=== PATIENT | male | born 1945 | race Hispanic/Latino ===

== ENCOUNTER 2017-05-13 13:58 | Emergency (ER) | payer MEDICARE ==
[~2017-05-13] VITALS: Ht 160 cm; Wt 75.0 kg
[~2017-05-13 13:58] MED LIST: CELEXA20 M1 PO; CIPROFLOXACN500 MG PO; FLEXERIL PO; HELIDAC PO; KEFLEX500 M1 PO; NAPROSYN500 MG PO; PRILOSEC2.5 MG PO; ULTRAM50 M1 PO; UNKNOWN BP MED; ZESTRIL10 M1 PO; [UNRECOGNIZED DRUG - REMARK]
[2017-05-13 14:45] LABS: HEMATOCRIT 47.2 % (39.0-50.0); HEMOGLOBIN 16.4 g/dl (14.0-18.0); IMMATURE GRANULOCYTES 0.2 % (0.0-1.0); MEAN CELL VOLUME 91.7 fL CALC (80.0-100.0); MEAN CORPUSCULAR HGB 31.8 pG CALC (26.0-32.0); MEAN CORPUSCULAR HGB CONC 34.7 g/L CALC (32.0-36.0); NEUT# 5.44 thou/uL (1.82-7.42); RED BLOOD COUNT 5.15 mill/uL (4.70-6.10); RED CELL DISTRI WIDTH 12.5 % (11.5-15.5)
[2017-05-13 14:58] LABS: ALBUMIN 4.8 g/dL (3.2-5.0); BILIRUBIN, TOTAL 0.7 mg/dL (0.0-1.4); CALCIUM 9.7 mg/dL (8.4-10.2); CREATININE 1.8 mg/dL (0.7-1.3); MAGNESIUM 2.2 mg/dL (1.6-2.3); POTASSIUM 4.7 mmol/l (3.5-5.1); TOTAL PROTEIN 8.3 g/dL (6.3-8.2)
[2017-05-13 16:57] LABS: URINE BILIRUBIN - DIPSTICK NEGATIVE (NEGATIVE); URINE BLOOD DIPSTICK TRACE-INTACT (NEGATIVE); URINE CLARITY CLEAR; URINE COLOR YELLOW; URINE GLUCOSE - DIPSTICK NEGATIVE (NEGATIVE); URINE KETONE NEGATIVE (NEGATIVE); URINE NITRITE - DIPSTICK NEGATIVE (Negative); URINE PH 5.5 (4.5-8.0); URINE PROTEIN - DIPSTICK NEGATIVE (NEG-TRACE); URINE UROBILINOGEN - DIPSTICK 0.2 E.U./dL (0.2)
[2017-05-13] MEDS ORDERED: ZESTRIL10 M1 PO (18:08)
[2017-05-13 18:16] VITALS: BP 155/65
[2017-05-14 06:59] LABS: URINE LEUK ESTERASE NEGATIVE (NEGATIVE)
== END 2017-05-13 18:22 | disposition left against medical advice (07) ==
LOC: ED 13:58 → ED-I 17:14 → ED 17:48 → MS2 17:49 → ED 17:49
PROVIDERS: Emergency Medicine
DX: N17.9 Acute kidney failure, unspecified (principal); Z91.19 Patient's noncompliance with other medical treatment and regimen; R25.2 Cramp and spasm; I10 Essential (primary) hypertension; X30.XXXA Exposure to excessive natural heat, initial encounter; Y93.89 Activity, other specified; Y92.007 Garden or yard of unspecified non-institutional (private) residence as the place of occurrence of the external cause

== ENCOUNTER 2017-06-26 17:46 | Observation (INO) | payer MEDICARE ==
[~2017-06-26] VITALS: Ht 160 cm; Wt 49.5 kg
[2017-06-26 18:59] LABS: HEMATOCRIT 45.7 % (39.0-50.0); HEMOGLOBIN 16.3 g/dl (14.0-18.0); IMMATURE GRANULOCYTES 0.3 % (0.0-1.0); MEAN CELL VOLUME 91.2 fL CALC (80.0-100.0); MEAN CORPUSCULAR HGB 32.5 pG CALC (26.0-32.0); MEAN CORPUSCULAR HGB CONC 35.7 g/L CALC (32.0-36.0); NEUT# 5.74 thou/uL (1.82-7.42); RED BLOOD COUNT 5.01 mill/uL (4.70-6.10); RED CELL DISTRI WIDTH 12.4 % (11.5-15.5)
[2017-06-26 19:00] VITALS: BP 141/57
[2017-06-26 19:08] LABS: ALBUMIN 5.1 g/dL (3.2-5.0); CALCIUM 10.1 mg/dL (8.4-10.2); CREATININE 2.4 mg/dL (0.7-1.3); POTASSIUM 4.1 mmol/l (3.5-5.1); TOTAL PROTEIN 8.9 g/dL (6.3-8.2)
[2017-06-26 19:38] LABS: URINE BILIRUBIN - DIPSTICK NEGATIVE (NEGATIVE); URINE BLOOD DIPSTICK NEGATIVE (NEGATIVE); URINE CLARITY CLEAR; URINE COLOR YELLOW; URINE GLUCOSE - DIPSTICK NEGATIVE (NEGATIVE); URINE KETONE NEGATIVE (NEGATIVE); URINE LEUK ESTERASE NEGATIVE (NEGATIVE); URINE NITRITE - DIPSTICK NEGATIVE (Negative); URINE PH 5.5 (4.5-8.0); URINE PROTEIN - DIPSTICK TRACE mg/dL (NEG-TRACE); URINE SPECIFIC GRAVITY >=1.030; URINE UROBILINOGEN - DIPSTICK 0.2 E.U./dL (0.2)
[2017-06-27 00:35] VITALS: BP 110/55
[2017-06-27 03:37] VITALS: BP 95/48
[2017-06-27 04:46] VITALS: BP 110/56
[2017-06-27 06:33] LABS: HEMATOCRIT 40.7 % (39.0-50.0); HEMOGLOBIN 13.9 g/dl (14.0-18.0); IMMATURE GRANULOCYTES 0.2 % (0.0-1.0); MEAN CELL VOLUME 94.7 fL CALC (80.0-100.0); MEAN CORPUSCULAR HGB 32.3 pG CALC (26.0-32.0); MEAN CORPUSCULAR HGB CONC 34.2 g/L CALC (32.0-36.0); NEUT# 2.73 thou/uL (1.82-7.42); RED BLOOD COUNT 4.3 mill/uL (4.70-6.10); RED CELL DISTRI WIDTH 12.7 % (11.5-15.5)
[2017-06-27 06:41] LABS: ANION GAP 13 (6-22 (CALC)); BUN 21 mg/dL (8-23); BUN/CREATININE RATIO 18 (12-20 (CALC)); CALCIUM 8.2 mg/dL (8.4-10.2); CARBON DIOXIDE 23 mmol/l (22-30); CHLORIDE 109 mmol/l (95-108); CREATININE 1.2 mg/dL (0.7-1.3); GFR 59 ML/MIN (>=60 (CALC)); GFR FOR AFR.AMER. > 60 ML/MIN (>=60 (CALC)); GLUCOSE 94 mg/dL (82-115); POTASSIUM 3.7 mmol/l (3.5-5.1); SODIUM 141 mmol/l (137-146)
[2017-06-27 09:46] VITALS: BP 115/62
== END 2017-06-27 15:20 | disposition home or self-care (01) ==
LOC: ED 17:46 → ED-I 19:20 → ED 19:47 → MS2 19:48
PROVIDERS: Emergency Medicine; ADMIT Internal Medicine; ATTEND Internal Medicine
DX: N17.9 Acute kidney failure, unspecified (principal); E86.0 Dehydration; I10 Essential (primary) hypertension; X30.XXXA Exposure to excessive natural heat, initial encounter; T46.4X5A Adverse effect of angiotensin-converting-enzyme inhibitors, initial encounter

== ENCOUNTER 2018-01-01 19:00 | Emergency (ER) | payer MEDICARE ==
[~2018-01-01] VITALS: Ht 160 cm; Wt 69.2 kg
[2018-01-01 21:24] LABS: URINE BILIRUBIN - DIPSTICK NEGATIVE (NEGATIVE); URINE BLOOD DIPSTICK TRACE-INTACT (NEGATIVE); URINE COLOR YELLOW; URINE GLUCOSE - DIPSTICK NEGATIVE (NEGATIVE); URINE KETONE NEGATIVE (NEGATIVE); URINE LEUK ESTERASE NEGATIVE (NEGATIVE); URINE NITRITE - DIPSTICK NEGATIVE (Negative); URINE PH 5.5 (4.5-8.0); URINE PROTEIN - DIPSTICK NEGATIVE (NEG-TRACE); URINE SPECIFIC GRAVITY 1.025; URINE UROBILINOGEN - DIPSTICK 0.2 E.U./dL (0.2)
[2018-01-01 21:25] LABS: IMMATURE GRANULOCYTES 0.3 % (0.0-1.0); MEAN CELL VOLUME 93.9 fL CALC (80.0-100.0); MEAN CORPUSCULAR HGB 31.7 pG CALC (26.0-32.0); MEAN CORPUSCULAR HGB CONC 33.7 g/L CALC (32.0-36.0); NEUT# 4.03 thou/uL (1.82-7.42); RED BLOOD COUNT 5.27 mill/uL (4.70-6.10)
[2018-01-01 21:30] LABS: HEMATOCRIT 49.5 % (39.0-50.0); HEMOGLOBIN 16.7 g/dl (14.0-18.0)
[2018-01-01 21:38] LABS: ALBUMIN 4.6 g/dL (3.2-5.0); ALKALINE PHOSPHATASE 98 u/l (38-126); ANION GAP 19 (6-22 (CALC)); BILIRUBIN, TOTAL 0.9 mg/dL (0.0-1.4); BUN 17 mg/dL (8-23); BUN/CREATININE RATIO 15 (12-20 (CALC)); CARBON DIOXIDE 26 mmol/l (22-30); CHLORIDE 103 mmol/l (95-108); CREATININE 1.1 mg/dL (0.7-1.3); GFR > 60 ML/MIN (>=60 (CALC)); GFR FOR AFR.AMER. > 60 ML/MIN (>=60 (CALC)); LIPASE 88 u/l (23-300); POTASSIUM 4.3 mmol/l (3.5-5.1); SGOT/AST 28 u/l (19-48); SGPT/ALT 38 u/l (11-66); SODIUM 143 mmol/l (137-146); TOTAL PROTEIN 8.1 g/dL (6.3-8.2)
[2018-01-01 21:50] LABS: MYOGLOBIN 62 ng/mL (0 - 121)
[2018-01-01 21:57] LABS: URINE CLARITY CLEAR
[2018-01-01 22:25] VITALS: BP 131/64
== END 2018-01-01 22:40 | disposition home or self-care (01) ==
LOC: ED 19:00
PROVIDERS: Emergency Medicine
DX: R10.84 Generalized abdominal pain (principal); I10 Essential (primary) hypertension; R11.0 Nausea; R13.10 Dysphagia, unspecified; R05 Cough
CPT/HCPCS: S0164

== ENCOUNTER 2018-10-07 14:59 | Emergency (ER) | payer MEDICARE ==
[~2018-10-07] VITALS: Ht 160 cm; Wt 75.0 kg
[2018-10-07 17:43] LABS: HEMATOCRIT 49.4 % (39.0-50.0); HEMOGLOBIN 17.1 g/dl (14.0-18.0); IMMATURE GRANULOCYTES 0.1 % (0.0-5.0); MEAN CELL VOLUME 93.9 fL CALC (80.0-100.0); MEAN CORPUSCULAR HGB 32.5 pG CALC (26.0-32.0); MEAN CORPUSCULAR HGB CONC 34.6 g/L CALC (32.0-36.0); NEUT# 3.29 thou/uL (1.82-7.42); RED BLOOD COUNT 5.26 mill/uL (4.70-6.10); RED CELL DISTRI WIDTH 12.5 % (11.5-15.5)
[2018-10-07 17:57] LABS: ALBUMIN 4.4 g/dL (3.2-5.0); ALKALINE PHOSPHATASE 70 u/l (38-126); ANION GAP 17 (6-22 (CALC)); BILIRUBIN, TOTAL 0.7 mg/dL (0.0-1.4); BUN 18 mg/dL (8-23); BUN/CREATININE RATIO 18 (12-20 (CALC)); CARBON DIOXIDE 22 mmol/l (22-30); CHLORIDE 103 mmol/l (95-108); GFR > 60 ML/MIN (>=60 (CALC)); GFR FOR AFR.AMER. > 60 ML/MIN (>=60 (CALC)); LIPASE 130 u/l (23-300); POTASSIUM 4.7 mmol/l (3.5-5.1); SODIUM 137 mmol/l (137-146); TOTAL PROTEIN 8.2 g/dL (6.3-8.2)
[2018-10-07 18:04] LABS: SGOT/AST 80 u/l (19-48)
[2018-10-07] MEDS ORDERED: LISINOPRIL10 M1 PO (18:44)
[2018-10-07] MEDS ORDERED: FAMOTIDINE20 M3 PO (18:45)
[2018-10-07] MEDS ORDERED: METRONIDAZOLE500 MG PO (18:46)
[2018-10-07] MEDS ORDERED: CLARITHROMYCIN500 MG PO (18:46)
[2018-10-07] MEDS ORDERED: AMOXICILLIN875 MG PO (18:48)
[2018-10-07 19:08] LABS: BARBITURATES NEGATIVE (NEGATIVE); COCAINE NEGATIVE (NEGATIVE); METHADONE NEGATIVE (NEGATIVE); OXCYCODONE NEGATIVE (NEGATIVE); TETRAHYDROCANNABIONOL NEGATIVE (NEGATIVE); TRICYLIC ANTIDEPRESSANTS NEGATIVE (NEGATIVE)
[2018-10-07 19:25] LABS: MYOGLOBIN 62 ng/mL (0 - 121)
[2018-10-07] MEDS ORDERED: ANTIVERT PO (20:26)
[2018-10-07 20:40] VITALS: BP 136/86
== END 2018-10-07 20:41 | disposition home or self-care (01) ==
LOC: ED 14:59
PROVIDERS: Emergency Medicine; Family Medicine
DX: R42 Dizziness and giddiness (principal); I10 Essential (primary) hypertension

== ENCOUNTER 2020-05-28 15:53 | Emergency (ER) | payer MEDICARE ==
[~2020-05-28] VITALS: Ht 160 cm; Wt 72.7 kg
[~2020-05-28 15:53] MED LIST changes: +AMOXICILLIN875 MG PO; +ANTIVERT PO; +CLARITHROMYCIN500 MG PO; +FAMOTIDINE20 M3 PO; +LISINOPRIL10 M1 PO; +METRONIDAZOLE500 MG PO
[2020-05-28 16:13] LABS: HEMATOCRIT 47.7 % (39.0-50.0); HEMOGLOBIN 15.8 g/dl (14.0-18.0); IMMATURE GRANULOCYTES 0.3 % (0.0-5.0); MEAN CELL VOLUME 93.3 fL CALC (80.0-100.0); MEAN CORPUSCULAR HGB 30.9 pG CALC (26.0-32.0); MEAN CORPUSCULAR HGB CONC 33.1 g/dL CAL (32.0-36.0); NEUT# 4.42 thou/uL (1.82-7.42); RED BLOOD COUNT 5.11 mill/uL (4.70-6.10); RED CELL DISTRI WIDTH 12.6 % (11.5-15.5)
[2020-05-28 16:23] LABS: ANION GAP 13 (6-22 (CALC)); BUN 18 mg/dL (8-23); BUN/CREATININE RATIO 15 (12-20 (CALC)); CARBON DIOXIDE 22 mmol/l (22-30); CHLORIDE 107 mmol/l (95-108); CREATININE 1.3 mg/dL (0.7-1.3); GFR 54 ML/MIN (>=60 (CALC)); GFR FOR AFR.AMER. > 60 ML/MIN (>=60 (CALC)); SODIUM 138 mmol/l (137-146)
[2020-05-28 17:30] VITALS: BP 139/65
== END 2020-05-28 17:28 | disposition left against medical advice (07) ==
LOC: ED 15:53
PROVIDERS: Family Medicine
DX: R07.9 Chest pain, unspecified (principal); I10 Essential (primary) hypertension; I20.9 Angina pectoris, unspecified

== ENCOUNTER 2024-11-17 10:46 | Observation (INO) | payer MEDICARE ==
[2024-11-17] VITALS (15 sets, daily range): BP systolic 116–152; BP diastolic 56–109
[~2024-11-17] VITALS: Ht 152.4 cm; Wt 68.8 kg
--- NOTE | 2024-11-17 10:50 | NUR ---
PATIENT TO ROOM 13
--- NOTE | 2024-11-17 10:51 | NUR ---
PATIENT AMBULATES FROM EMS STRETCHER TO BED
[2024-11-17] MEDS ORDERED: PRILOSEC OTC20 MG PO (11:02)
[2024-11-17 11:35] LABS: BASO% 0.9 % (0-3); EOS% 0.9 % (0-8); HEMATOCRIT 43.7 % (39.0-50.0); HEMOGLOBIN 14.8 g/dl (14.0-18.0); IMMATURE GRANULOCYTES 0.2 % (0.0-5.0); LYMPH% 20.5 % (15-41); MEAN CELL VOLUME 95.6 fL CALC (80.0-100.0); MEAN CORPUSCULAR HGB 32.4 pG CALC (26.0-32.0); MEAN CORPUSCULAR HGB CONC 33.9 g/dL CAL (32.0-36.0); MONO% 11.8 % (2-13); NEUT# 4.23 thou/uL (1.82-7.42); NEUT% 65.7 % (42-76); RED BLOOD COUNT 4.57 mill/uL (4.70-6.10)
[2024-11-17] MEDS ORDERED: ASPIRIN 81 MG/TAB PO ONE (11:45)
[2024-11-17] MEDS ORDERED: AMLODIPINE BESY10 MG PO (11:56)
[2024-11-17] MEDS ORDERED: ARICEPT10 MG PO (11:57)
[2024-11-17] MEDS ORDERED: COZAAR100 MG PO (11:57)
[2024-11-17] MEDS ORDERED: MEMANTINE HYDROC5 MG PO (11:58)
[2024-11-17 12:01] LABS: INTERNATIONAL NORMALIZED RATIO 0.9 RATIO (0.7-1.3)
[2024-11-17 12:02] LABS: PROTHROMBIN TIME 10.1 SECONDS (9.0-12.5)
[2024-11-17 12:03] LABS: ALBUMIN 4.5 g/dL (3.2-5.0); ALKALINE PHOSPHATASE 70 u/l (38-126); ANION GAP 12 (6-22 (CALC)); BUN 17 mg/dL (8-23); BUN/CREATININE RATIO 13 (12-20 (CALC)); CALCULATED LDLCHOLESTEROL 89 mg/dL (62-129 (CALC)); CARBON DIOXIDE 25 mmol/l (22-30); CHLORIDE 106 mmol/l (95-108); CHOLESTEROL HDL RATIO 3.7 (<4.4 (CALC)); CREATININE 1.3 mg/dL (0.7-1.3); ESTIMATED GFR 55 ML/MIN (>=90 (CALC)); HDL CHOLESTEROL 44 mg/dL (39.0-59.0); POTASSIUM 4.8 mmol/l (3.5-5.1); SGOT/AST 52 u/l (19-48); SODIUM 138 mmol/l (137-146); TOTAL CHOLESTEROL 164 mg/dl (0-199); TOTAL PROTEIN 8.2 g/dL (6.3-8.2); TOTAL TRIGLYCERIDES 157 mg/dl (0-149); VLDL CHOLESTROL 31 mg/dl (0-38 (CALC))
[2024-11-17 12:08] LABS: BILIRUBIN, TOTAL 1.2 mg/dL (0.2-1.3)
--- NOTE | 2024-11-17 12:58 | NUR ---
FAMILY REMAINS BEDSIDE WITH PATINET
[2024-11-17] MEDS ORDERED: DEXTROSE 250 ML IV PRN (13:30)
[2024-11-17] MEDS ORDERED: ACETAMINOPHEN 325 MG/TAB PO PRN (13:30)
[2024-11-17] MEDS ORDERED: MAGNESIUM HYDROXIDE 30 ML UDC PO PRN (13:30)
--- NOTE | 2024-11-17 13:52 | NUR ---
NURSE TO NURSE REPORT COMPLETED FOR ROOM 262
[2024-11-17] MEDS ORDERED: Heparin SODIUM (Porcine) 5,000 UNITS/ML SDV SC SCH (14:00)
[2024-11-17 14:53] LABS: URINE BILIRUBIN - DIPSTICK Negative (NEGATIVE); URINE BLOOD DIPSTICK Negative (NEGATIVE); URINE GLUCOSE - DIPSTICK Negative (NEGATIVE); URINE KETONE Negative (NEGATIVE); URINE LEUK ESTERASE Negative (NEGATIVE); URINE NITRITE - DIPSTICK Negative (Negative); URINE PROTEIN - DIPSTICK Negative (NEG-TRACE); URINE UROBILINOGEN - DIPSTICK 0.2 E.U./dL (0.2)
[2024-11-17 14:55] LABS: URINE COLOR Yellow
--- NOTE | 2024-11-17 15:48 | NUR ---
PT IS ALERT WITH CONFUSION WITH A DX OF DEMENTIA. PT IS A NEW ADMITTING DX WEAKNESS SLURRED SPEECH AND TIA. T ARRIVED WITH A 18 GAUGE TO THE RIGHT FOREARM. PT PRIMARY LANGUAGE IS [employer] NURSING STAFF HELP INTERPRET IN [employer]. PT HAS NO C/O PAIN AT THIS TIME. IVF IS INFUSING ORDER. PT SKIN IS INTACT AND VITAL ARE IN STABLE CONDITION. PT WAS EDUCATED ON HIS MEDICATION ADN THE SAFETY OF HIS ROOM. PT CALL AARON AT REACH ALL SAFETY MEASURES IN PLACE.
--- NOTE | 2024-11-17 15:54 | NUR ---
PT IS RESTING COMFORTABLY IN HIS BED. PT IVABT INFUSED AND COMPLETE. PT HAS NO C/O PAIN OR DISCOMFORT. ALL SAFETY MEASURES IN PLACE. NURSING WILL CONTIUE TO MONITOR.
--- NOTE | 2024-11-17 19:10 | NUR ---
PATIENT OBSERVED RESTING IN BED. ALERT AND ABLE TO MAKE NEEDS KNOWN. ASSESSMENT COMPLETE. NO DISTRESS NOTED. NO COMPLAINTS VOICED. DENIES NEEDING ANYTHING AT THIS TIME. BED IN LOW POSITION. CALL AARON IN REACH.
[2024-11-17] MEDS ORDERED: ATORVASTATIN CALCIUM 40 MG/TAB PO SCH (21:00)
--- NOTE | 2024-11-18 00:45 | NUR ---
PATIENT REMAINS RESTING IN BED WITH HOB ELEVATED. NO DISTRESS NOTED. NO COMPLAINTS VOICED. BED REMAINS IN LOW POSITION. CALL AARON IN REACH.
[2024-11-18 03:18] VITALS: BP 110/60
[2024-11-18 03:52] VITALS: BP 110/60
--- NOTE | 2024-11-18 04:05 | NUR ---
PATIENT REMAINS RESTING IN BED. NO DISTRESS NOTED. NO COMPLAINTS VOICED. BED REMAINS IN LOW POSITION. CALL AARON IN REACH.
[2024-11-18 06:00] LABS: BASO% 0.9 % (0-3); EOS% 2.8 % (0-8); HEMATOCRIT 42.2 % (39.0-50.0); HEMOGLOBIN 14.4 g/dl (14.0-18.0); LYMPH% 32.6 % (15-41); MEAN CELL VOLUME 97.2 fL CALC (80.0-100.0); MEAN CORPUSCULAR HGB 33.2 pG CALC (26.0-32.0); MEAN CORPUSCULAR HGB CONC 34.1 g/dL CAL (32.0-36.0); MONO% 10.2 % (2-13); NEUT# 3.03 thou/uL (1.82-7.42); NEUT% 53.5 % (42-76); RED BLOOD COUNT 4.34 mill/uL (4.70-6.10)
[2024-11-18 06:20] LABS: ALBUMIN 3.8 g/dL (3.2-5.0); BILIRUBIN, TOTAL 0.7 mg/dL (0.2-1.3); CREATININE 1.6 mg/dL (0.7-1.3); MAGNESIUM 2.2 mg/dL (1.6-2.3); POTASSIUM 4.1 mmol/l (3.5-5.1); TOTAL PROTEIN 6.9 g/dL (6.3-8.2)
[2024-11-18 07:04] VITALS: BP 107/54
[2024-11-18] MEDS ORDERED: SODIUM CHLORIDE 0.9% 1,000 ML IV PRN (07:40)
--- NOTE | 2024-11-18 08:15 | NUR ---
PT WAS FOUND RESTING COMFORTABLY ON THE SIDE OF THE BED. PT IS A&O X2-3; DOMINICAN SPEAKING ONLY.PT IS STABLE AND IS ABLE TO MOVE ALL EXTREMITES. PLAN OF CARE WAS REVIEWED WITH THE PT AND FAMILY MEMBER; NO FURTHER QUESTIONS AT THIS TIME. CALL LIGHT IS WITHIN REACH.
[2024-11-18] MEDS ORDERED: ASPIRIN EC 81 MG/TAB PO SCH (09:00)
[2024-11-18] MEDS ORDERED: MEMANTINE Hydrochloride 10 MG/TAB PO SCH (09:00)
[2024-11-18] MEDS ORDERED: amLODIPine BESYLATE 5 MG/TAB PO SCH (09:00)
[2024-11-18] MEDS ORDERED: DONEPEZIL HCL 5 MG/TAB PO SCH (09:00)
[2024-11-18] MEDS ORDERED: LOSARTAN Potassium 50 MG/TAB PO SCH (09:00)
[2024-11-18] MEDS ORDERED: PANTOPRAZOLE SODIUM Sesquihydr 40 MG/TAB PO SCH (09:00)
--- NOTE | 2024-11-18 11:50 | NUR ---
PT'S CONDITION REMAINS UNCHANGED. HE IS SITTING UP AND EATING LUNCH. FAMILY IS AT BEDSIDE; CALL LIGHT IS WITHIN REACH.
[2024-11-18] MEDS ORDERED: ATORVASTATIN CA40 MG PO (13:37)
[2024-11-18] MEDS ORDERED: ASPIRIN REGULA325 M1 PO (13:38)
--- NOTE | 2024-11-18 15:10 | NUR ---
Discharge instructions given. Patient verbalizes understanding of same. Discharged in stable condition via Wheelchair to Home with family. All belongings sent with pt. IV out and tele was returned to the ER.
--- NOTE | 2024-11-22 09:43 | NUR ---
DISCHARGE FOLLOW UP CLL COMPLETED TODAY, 11/22/24. DAUGHTER STATES PATIENT IS DOING WELL SINCE DISCHARGE. PATIENT IS TAKING PRESCRIBED MEDICATIONS DIRECTED. NOHEMI HAS A FOLLOW UP APPOINTMENT WITH HIS PROVIDER TODAY. NO NEEDS OR CONCERNS VERBALIZED AT THIS TIME.
== END 2024-11-18 15:04 | disposition home or self-care (01) ==
LOC: ED 10:46 → ED-I 13:00 → ED 13:07 → MS2 13:08
PROVIDERS: Emergency Medicine; Nurse Practitioner Family; ADMIT Internal Medicine; ATTEND Internal Medicine
DX: G45.9 Transient cerebral ischemic attack, unspecified (principal); I12.9 Hypertensive chronic kidney disease with stage 1 through stage 4 chronic kidney disease, or unspecified chronic kidney disease; N18.9 Chronic kidney disease, unspecified; F03.90 Unspecified dementia, unspecified severity, without behavioral disturbance, psychotic disturbance, mood disturbance, and anxiety; Z86.73 Personal history of transient ischemic attack (TIA), and cerebral infarction without residual deficits
CPT/HCPCS: J1644